=== PATIENT | male | born 1930 | race African-American/Black ===

== ENCOUNTER 2018-12-12 13:24 | Inpatient (IN) | payer MEDICARE ==
[~2018-12-12] VITALS: Ht 190.5 cm; Wt 93.0 kg
[~2018-12-12 13:24] MED LIST changes: -REGADENOSON 0.4 MG/5 ML IV ONE
[2018-12-12] MEDS ORDERED: SODIUM CHLORIDE 0.9% 1,000 ML IV ONE (15:08)
[2018-12-12 15:57] LABS: BASOPHILS % 0.6 % (0.0-2.0); EOSINOPHILS % 1.3 % (0.0-5.0); HEMOGLOBIN. 12.3 g/dL (14.0-18.0); LYMPHOCYTES % 31.5 % (20.0-50.0); MEAN CORPUSCULAR HEMOGLOBIN 25.8 pg (28.0-32.0); MEAN CORPUSCULAR VOLUME 79.4 fL (80.0-94.0); MEAN PLATELET VOLUME 8.1 fl (7.4-10.4); MONOCYTES % 12.3 % (2.0-8.0); NEUTROPHILS % 54.3 % (40.0-76.0); PLATELET 236 x1000/uL (130-400); RED BLOOD CELL COUNT 4.78 mill/uL (4.7-6.1); RED CELL DISTRIBUTION WIDTH 15.9 % (11.6-14.6)
[2018-12-12 16:01] LABS: CHLORIDE 107 mEq/L (98-107)
[2018-12-12 16:02] LABS: INR 1.1
[2018-12-12 17:32] LABS: CLARITY URINE CLOUDY (CLEAR); COLOR URINE YELLOW (YELLOW); KETONES URINE TRACE (NEGATIVE); LEUKOCYTE ESTERASE URINE 2+ (NEGATIVE); NITRITE URINE NEGATIVE (NEGATIVE); OCCULT BLOOD URINE NEGATIVE (NEGATIVE); PH URINE 6.5 (4.5-8.0); PROTEIN URINE TRACE (NEGATIVE); SPECIFIC GRAVITY URINE 1.018 (1.005-1.030); UROBILINOGEN URINE 0.2 E.U./dL (0.2-1.0)
[2018-12-12] MEDS ORDERED: ASPIRIN 325MG EC TABLET PO ONE (17:45)
[2018-12-12] MEDS ORDERED: LEVOFLOXACIN 500MG PREMIX 100 ML IV ONE (18:15)
[2018-12-12] MEDS ORDERED: DOCUSATE SODIUM 100MG CAPSULE PO PRN (23:00)
[2018-12-12] MEDS ORDERED: LEVOFLOXACIN 500MG PREMIX 100 ML IV SCH (23:00)
[2018-12-12 23:23] VITALS: BP 176/80
[2018-12-13] VITALS: BP 176/80
[2018-12-13] MEDS: CEPHALEXIN 250MG CAPSULE PO SCH ×3 (00:23→13:48)
[2018-12-13 04:00] VITALS: BP 141/59
[2018-12-13] MEDS: SODIUM CHLORIDE 0.9% INJ 3ML FLUSH IVF SCH ×2 (06:24→13:48)
[2018-12-13 07:12] LABS: BASOPHILS % 0.3 % (0.0-2.0); EOSINOPHILS % 3.6 % (0.0-5.0); HEMATOCRIT. 36.9 % (42.0-52.0); HEMOGLOBIN. 11.9 g/dL (14.0-18.0); LYMPHOCYTES % 29.4 % (20.0-50.0); MEAN CORPUSCULAR HEMOGLOBIN 25.7 pg (28.0-32.0); MEAN CORPUSCULAR VOLUME 79.6 fL (80.0-94.0); MEAN PLATELET VOLUME 8.3 fl (7.4-10.4); MONOCYTES % 9.3 % (2.0-8.0); NEUTROPHILS % 57.4 % (40.0-76.0); PLATELET 222 x1000/uL (130-400); RED BLOOD CELL COUNT 4.64 mill/uL (4.7-6.1); RED CELL DISTRIBUTION WIDTH 15.7 % (11.6-14.6)
[2018-12-13 07:19] LABS: CHLORIDE 109 mEq/L (98-107)
[2018-12-13] MEDS ORDERED: LEVOTHYROXINE SODIUM 100MCG TABLET PO SCH (07:20)
[2018-12-13 07:30] LABS: LDL CHOLESTEROL 106 mg/dL (5-100)
[2018-12-13 07:32] LABS: HDL CHOLESTEROL 34 mg/dL (40-59)
[2018-12-13 08:00] VITALS: BP 152/79
[2018-12-13] MEDS ORDERED: CHOLECALCIFEROL (D3) 1000 UNIT TABLET PO SCH (09:00)
[2018-12-13] MEDS ORDERED: CLOPIDOGREL 75MG TABLET PO SCH (09:00)
[2018-12-13] MEDS ORDERED: METOPROLOL TARTRATE 50MG TABLET PO SCH (09:00)
[2018-12-13] MEDS ORDERED: OXYBUTYNIN CHLORIDE 5MG TABLET PO SCH (09:00)
[2018-12-13] MEDS ORDERED: FOLIC ACID 1MG TABLET PO SCH (09:00)
[2018-12-13] MEDS ORDERED: ASPIRIN 81MG TABLET PO SCH (09:00)
[2018-12-13] MEDS ORDERED: ENOXAPARIN 40MG/0.4ML SYR SUBCUT SCH (09:00)
[2018-12-13 12:00] VITALS: BP 139/63
[2018-12-13 16:00] VITALS: BP 155/82
[2018-12-13 16:14] VITALS: BP 155/82
[2018-12-13] MEDS ORDERED: LEVOFLOXACIN 500MG PREMIX 100 ML IV SCH (18:00)
[2018-12-13] MEDS ORDERED: DOXAZOSIN MESYLATE 4MG TABLET PO SCH (21:00)
== END 2018-12-13 16:50 | disposition home or self-care (01) | DRG 395 ==
LOC: ER 13:24 → 6WST 18:06 → EDBEDREQ 18:11 → ENRESERV 20:21
PROVIDERS: ADMIT Ophthalmology; ATTEND Ophthalmology
DX: K40.90 Unilateral inguinal hernia, without obstruction or gangrene, not specified as recurrent (principal); E03.9 Hypothyroidism, unspecified; E78.5 Hyperlipidemia, unspecified; I10 Essential (primary) hypertension; I25.10 Atherosclerotic heart disease of native coronary artery without angina pectoris; J44.9 Chronic obstructive pulmonary disease, unspecified; N40.0 Benign prostatic hyperplasia without lower urinary tract symptoms; Z87.440 Personal history of urinary (tract) infections; Z87.891 Personal history of nicotine dependence; Z88.1 Allergy status to other antibiotic agents; Z90.49 Acquired absence of other specified parts of digestive tract; Z95.0 Presence of cardiac pacemaker; Z95.5 Presence of coronary angioplasty implant and graft; Z88.0 Allergy status to penicillin
CPT/HCPCS: 36415; 71045; 74176; 78452; 80048; 80061; 83605; 84443; 84484; 87077; 87186; 93005; 93017; 96361; 96365; 96372; 96375; 99285; A9500; C1893; J1650; J1956; J2785; J7030

== ENCOUNTER → 2018-12-12 | Outpatient (CLI) | payer MEDICARE ==
[~2018-12-12] MED LIST: ASPI-1159 PO; CHOL500010 PO; CLOP75TA16 PO; CRANBERRY PO; DOXA4TAB3 PO; FISH OIL PO; FOLI-43 PO; HIPREX PO; LEVO100T9 PO; LUBI24CA5 PO; METO50TA95 PO; OXYB5SYR2 PO; REGADENOSON 0.4 MG/5 ML IV ONE
== END | disposition home or self-care (01) ==
LOC: NM 07:22
PROVIDERS: ATTEND Internal Medicine Clinical Cardiac Electrophysiology
DX: Z45.010 Encounter for checking and testing of cardiac pacemaker pulse generator [battery] (principal); Z45.018 Encounter for adjustment and management of other part of cardiac pacemaker; I44.30 Unspecified atrioventricular block; Z88.0 Allergy status to penicillin
CPT/HCPCS: 78452; 93017; A9500; C1893; J2785